=== PATIENT | female | born 1970 | race Caucasian/White ===

== ENCOUNTER 2017-03-17 04:24 | Emergency (ER) | payer OTHER ==
[2017-03-17 05:16] VITALS: TEMP 97.6; BMI 25.5
[2017-03-17] MEDS ORDERED: SODIUM CHLORIDE 1,000 ML IV STA (05:28)
[2017-03-17] MEDS ORDERED: morphine CARPU-JECT 2 MG/1 ML DISP.SYRIN IVPUSH ONE (05:28)
[2017-03-17] MEDS ORDERED: morphine CARPU-JECT 4 MG/1 ML DISP.SYRIN ONE (05:34)
[2017-03-17 05:49] LABS: BASOPHIL 0.5 % (0-2.0); EOSINOPHIL 2.9 % (0-4.5); MCH 30.8 pg (25.7-33.7); MCHC 33.5 g/dl (32.0-36.0); MEAN CELL VOLUME 91.9 fl (80-96); MEAN PLT VOLUME 9.6 fl (7.5-11.1); NEUTROPHILS 64.9 % (42.8-82.8); PLATELET COUNT 278 K/MM3 (134-434); RDW 13.8 % (11.6-15.6); WHITE BLOOD COUNT 7.9 K/mm3 (4.0-10.0)
--- NOTE | 2017-03-17 06:14 | PDOC ---
History of Present Illness - General Chief Complaint: Pain Stated Complaint: ABD PAIN Time Seen by Provider: 03/17/17 05:04 History Source: Patient Exam Limitations: No Limitations - History of Present Illness Travel History: No Initial Comments: 03/17/17 06:00 46-year-old female presents to the ED with gradually worsening right lower quadrant and right suprapubic pain that began at 10 PM last night. Patient describes it as a sharp pain without radiation, nausea, abdominal distention, diarrhea, dysuria, or fever. Patient denies history of ovarian cysts, UTIs, renal colic, gallstones or GI surgery. Patient does state history of hypertension. Timing/Duration: reports: constant, getting worse Quality: reports: moderate, sharpness Abdominal Pain Onset Location: reports: RLQ, suprapubic Activities at Onset: reports: none Aggravating Factors: improves with: None Alleviating Factors: improves with: None Past History - Past Medical History Allergies/Adverse Reactions: Allergies Allergy/AdvReac Type Severity Reaction Status Date / Time No Known Allergies Allergy Verified 02/18/16 16:13 Home Medications: Ambulatory Orders Spironolact/Hydrochlorothiazid [Spironolactone-Hctz 25-25 Tab] 1 tab PO DAILY Valsartan 320 mg PO DAILY 03/17/17 Anemia: No Asthma: Yes Cancer: No Cardiac Disorders: No CVA: No COPD: No CHF: No Dementia: No Diabetes: No GI Disorders: No Disorders: No HTN: Yes Hypercholesterolemia: No Liver Disease: No Seizures: No Thyroid Disease: No - Surgical History Abdominal Surgery: Yes (btl) Appendectomy: No Cardiac Surgery: No Cholecystectomy: No Lung Surgery: No Neurologic Surgery: No - Reproductive History LMP Normal: Yes Is Patient Now?: No - Psycho/Social/Smoking Cessation Hx Suicidal Ideation: No Smoking Status: No Smoking History: Never smoked Number of Cigarettes Smoked Daily: 0 Hx Alcohol Use: No Drug/Substance Use Hx: No Substance Use Type: None Hx Substance Use Treatment: No Patient Lives Alone: No Lives with/in: spouse/SO Review of Systems - Review of Systems Able to Perform ROS?: Yes Constitutional: No: Symptoms Reported HEENTM: No: Symptoms Reported Respiratory: No: Symptoms reported Cardiac (ROS): No: Symptoms Reported ABD/GI: Yes: Abdominal cramping. No: Nausea, Vomiting : No: Symptoms Reported Musculoskeletal: No: Symptoms Reported Integumentary: No: Symptoms Reported Neurological: No: Symptoms reported Endocrine: No: Symptoms Reported Hematologic/Lymphatic: No: Symptoms Reported *Physical Exam - Vital Signs Last Vital Signs Temp Pulse Resp BP Pulse Ox 97.6 F 65 22 113/65 99 03/17/17 04:55 03/17/17 04:55 03/17/17 04:55 03/17/17 04:55 03/17/17 04:55 - Physical Exam General Appearance: Yes: Nourished, Appropriately Dressed. No: Apparent Distress HEENT: negative: Pale Conjunctivae Respiratory/Chest: positive: Lungs Clear, Normal Breath Sounds. negative: Respiratory Distress, Accessory Muscle Use Cardiovascular: positive: Regular Rhythm, Regular Rate. negative: Murmur Female Pelvic Exam: positive: normal external exam (deferred pelvic exam (pt refused)) Gastrointestinal/Abdominal: positive: Normal Bowel Sounds, Soft, Increased Bowel Sounds, Tenderness (rlq. rt flank. + mcburneys). negative: Rebound, Mass Musculoskeletal: negative: CVA Tenderness Extremity: positive: Normal Capillary Refill. negative: Pedal Edema Integumentary: positive: Normal Color, Warm, Moist Neurologic: positive: Motor Strength 5/5 (ambulatory) ED Treatment Course - LABORATORY CBC & Chemistry Diagram: 03/17/17 05:32 03/17/17 05:32 - ADDITIONAL ORDERS Additional order review: Laboratory Results 03/17/17 05:32 Urine HCG, Qual Negative 03/17/17 05:32 RBC 4.27 MCV 91.9 MCHC 33.5 RDW 13.8 MPV 9.6 Neutrophils % 64.9 Lymphocytes % 24.9 D Monocytes % 6.8 Eosinophils % 2.9 Basophils % 0.5 - Medications Given in the ED: ED Medications Discontinued Medications Generic Name Dose Route Start Last Admin Trade Name Freq PRN Reason Stop Dose Admin Morphine Sulfate 4 mg 03/17/17 05:28 03/17/17 05:31 Morphine Injection - IVPUSH 03/17/17 05:29 4 mg ONCE ONE Administration Medical Decision Making - Medical Decision Making 03/17/17 06:00 Patient with complaints of right lower quadrant right suprapubic pain that began at 10 PM last night and gradually has worsened. Patient exam had point tenderness to the right lower quadrant and right suprapubic region. Patient concerning for appendicitis versus colitis versus ovarian cyst. Patient ordered for labs, urine analgesics and will determine imaging once labs are resulted. 03/17/17 11:50 Laboratory Tests 03/17/17 03/17/17 03/17/17 05:32 05:32 05:32 WBC 7.9 Hgb 13.1 D Hct 39.2 Neutrophils % 64.9 Sodium 140 Potassium 4.1 Chloride 98 Carbon Dioxide 29 Anion Gap 13 BUN 18 Creatinine 0.8 Random Glucose 101 Lactic Acid Calcium 9.2 Total Bilirubin 0.6 AST 17 ALT 21 Alkaline Phosphatase 78 Total Protein 7.9 Lipase Urine Ketones Negative Urine Nitrite Negative Urine HCG, Qual Negative 03/17/17 03/17/17 05:32 05:32 WBC Hgb Hct Neutrophils % Sodium Potassium Chloride Carbon Dioxide Anion Gap BUN Creatinine Random Glucose Lactic Acid 1.851 Calcium Total Bilirubin AST ALT Alkaline Phosphatase Total Protein Lipase 163 Urine Ketones Urine Nitrite Urine HCG, Qual 03/17/17 12:51 Ultrasound verbally dictated by Dr. Villafana who states patient has a right ovarian cysts were no other acute findings. Patient will be discharged home to follow-up with her PCP and told to take Motrin for discomfort. patient currently asymptomatic 03/17/17 12:52 *DC/Admit/Observation/Transfer Diagnosis at time of Disposition: Right ovarian cyst - Discharge Dispostion Disposition: HOME Condition at time of disposition: Improved - Referrals Referrals: Pretty Guzman MD [Primary Care Provider] - - Patient Instructions Printed Discharge Instructions: DI for Ovarian Cyst Additional Instructions: Please take 600 mg of Motrin every 8 hours for discomfort. May apply heating pad to the affected area. Please follow-up with your ACCESS CONTROL OFFICER and discussed today's findings. Return to ED if symptoms return or worsen
[2017-03-17 06:41] LABS: ANION GAP 13 (8-16); CALCIUM 9.2 mg/dL (8.5-10.1); CO2 29 mmol/L (21-32); CREATININE 0.8 mg/dL (0.55-1.02); GLUCOSE,RANDOM 101 mg/dL (74-106); SGOT/AST 17 U/L (15-37); SGPT/ALT 21 U/L (12-78); URINE APPEARANCE CLEAR; URINE BILIRUBIN NEGATIVE (NEGATIVE); URINE BLOOD NEGATIVE (NEGATIVE); URINE COLOR STRAW; URINE GLUCOSE (UA) NEGATIVE (NEGATIVE); URINE KETONE NEGATIVE (NEGATIVE); URINE LEUK ESTERASE NEGATIVE (NEGATIVE); URINE NITRITE NEGATIVE (NEGATIVE); URINE PROTEIN NEGATIVE (NEGATIVE); URINE UROBILINOGEN NEGATIVE E.U./dl (0.2-1.0)
[2017-03-17 06:43] LABS: ALK PHOS 78 U/L (45-117); BILIRUBIN,TOTAL 0.6 mg/dL (0.2-1.0); TOT PROT 7.9 g/dl (6.4-8.2)
[2017-03-17 13:19] VITALS: BP 110/72; PULSE 56
== END 2017-03-17 13:15 | disposition home or self-care (01) ==
LOC: JER 04:24
PROC: 3E033NZ Introduction of Analgesics, Hypnotics, Sedatives into Peripheral Vein, Percutaneous Approach (ICD-10-PCS; principal; 2017-03-17)
DX: N83.201 Unspecified ovarian cyst, right side (principal)
CPT/HCPCS: 36415; 76817-TC; 76856-TC; 80053; 81003; 83605; 83690; 84703; 85025; 96374; 99283-25

== ENCOUNTER 2017-12-27 08:15 | Emergency (ER) | payer OTHER ==
[2017-12-27 08:22] VITALS: BMI 26.3
--- NOTE | 2017-12-27 08:37 | PDOC ---
History of Present Illness - General Chief Complaint: Pain Stated Complaint: REVISIT, RT SIDE PAIN Time Seen by Provider: 12/27/17 08:34 History Source: Patient Exam Limitations: No Limitations - History of Present Illness Initial Comments: 12/27/17 09:08 Patient is a 47 her old female past medical history of hypertension, ovarian cysts, who presents emergency department today complaining of right flank pain. Patient states that she was seen on 12/25/17 for similar symptoms. She states that today her pain is worse than when she came in last. She states that the pain comes and goes and it feels like a sharp pain. She rates it as a 6/10. Denies fevers, chills nausea, vomiting, diarrhea, frequency, urgency, hematuria. Triage vital signs are WNL. Past History - Past Medical History Allergies/Adverse Reactions: Allergies Allergy/AdvReac Type Severity Reaction Status Date / Time No Known Allergies Allergy Verified 12/27/17 09:10 Home Medications: Ambulatory Orders Spironolact/Hydrochlorothiazid [Spironolactone-Hctz 25-25 Tab] 1 tab PO DAILY Valsartan 320 mg PO DAILY 03/17/17 Acetaminophen [Tylenol] 650 mg PO Q4H PRN #20 tablet 12/25/17 Famotidine [Pepcid] 20 mg PO BID PRN #14 tablet 12/25/17 Pantoprazole Sodium [Protonix] 40 mg PO DAILY #14 tablet. 12/25/17 Mag Hydrox/Al Hydrox/Simeth [Mylanta Suspension -] 30 ml PO Q6H #1 bottle Anemia: No Asthma: Yes Cancer: No Cardiac Disorders: No CVA: No COPD: No CHF: No DVT: No Dementia: No Diabetes: No GI Disorders: No Disorders: No HTN: Yes Hypercholesterolemia: No Liver Disease: No Seizures: No Thyroid Disease: No - Surgical History Abdominal Surgery: Yes (btl tubal ligation) Appendectomy: No Cardiac Surgery: No Cholecystectomy: No Lung Surgery: No Neurologic Surgery: No - Immunization History Immunization Up to Date: No - Suicide/Smoking/Psychosocial Hx Smoking Status: No Smoking History: Never smoked Have you smoked in the past 12 months: No Number of Cigarettes Smoked Daily: 0 Information on smoking cessation initiated: No Hx Alcohol Use: No Drug/Substance Use Hx: No Substance Use Type: None Hx Substance Use Treatment: No Review of Systems - Review of Systems Able to Perform ROS?: Yes Comments:: 12/27/17 08:45 CONSTITUTIONAL: Absent: fever, chills, diaphoresis, generalized weakness, malaise, loss of appetite HEENT: Absent: rhinorrhea, nasal congestion, throat pain, throat swelling, difficulty swallowing, mouth swelling, ear pain, eye pain, visual Changes CARDIOVASCULAR: Absent: chest pain, loss of consciousness, palpitations, irregular heart rate, peripheral edema RESPIRATORY: Absent: cough, shortness of breath, dyspnea with exertion, orthopnea, wheezing, stridor, hemoptysis GASTROINTESTINAL: Absent: abdominal pain, abdominal distension, nausea, vomiting, diarrhea, constipation, melena, hematochezia GENITOURINARY: Present: R flank pain Absent: dysuria, frequency, urgency, hesitancy, hematuria , genital pain MUSCULOSKELETAL: Absent: myalgia, arthralgia, joint swelling SKIN: Absent: rash, itching, pallor HEMATOLOGIC/IMMUNOLOGIC: Absent: easy bleeding, easy bruising, lymphadenopathy, frequent infections ENDOCRINE: Absent: unexplained weight gain, unexplained weight loss, heat intolerance, cold intolerance NEUROLOGIC: Absent: headache, focal weakness or paresthesias, dizziness, unsteady gait, seizure, mental status changes, bladder or bowel incontinence PSYCHIATRIC: Absent: anxiety, depression, suicidal or homicidal ideation, hallucinations. Is the patient limited Montserratian proficient: No *Physical Exam - Vital Signs Last Vital Signs Temp Pulse Resp BP Pulse Ox 98.3 F 70 18 146/87 100 12/27/17 08:18 12/27/17 08:18 12/27/17 08:18 12/27/17 08:18 12/27/17 08:18 - Physical Exam Comments: 12/27/17 08:45 GENERAL: Well developed, well nourished. Awake and alert x3. Mild distress, holding R side. HEENT: Normocephalic, atraumatic. PERRLA, EOMI. No conjunctival pallor. Sclera are non- icteric. Moist mucous membranes. Oropharynx is clear. NECK: Supple. Full ROM. No JVD. Carotid pulses 2+ and symmetric, without bruits. No thyromegaly. No lymphadenopathy. CARDIOVASCULAR: Regular rate and rhythm. No murmurs, rubs, or gallops. Distal pulses are 2+ and symmetric. PULMONARY: No evidence of respiratory distress. Lungs clear to auscultation bilaterally. No wheezing, rales or rhonchi. ABDOMINAL: Soft. Non-tender. Non-distended. No rebound or guarding. Negative rovsing, obturator, psoas signs. No organomegaly. Normoactive bowel sounds. MUSCULOSKELETAL R CVA tenderness. Normal range of motion at all joints. No bony deformities or tenderness. No CVA tenderness. EXTREMITIES: No cyanosis. No clubbing. No edema. No calf tenderness. SKIN: Warm and dry. Normal capillary refill. No rashes. No jaundice. NEUROLOGICAL: Alert, awake, appropriate. Cranial nerves 2-12 intact. No deficits to light touch and temperature in face, upper extremities and lower extremities. No motor deficits in the in face, upper extremities and lower extremities. Normoreflexic in the upper and lower extremities. Normal speech. Toes are down- going bilaterally. Gait is normal without ataxia. PSYCHIATRIC: Cooperative. Good eye contact. Appropriate mood and affect. ED Treatment Course - LABORATORY CBC & Chemistry Diagram: 12/27/17 09:00 12/27/17 09:00 Medical Decision Making - Medical Decision Making 12/27/17 09:09 Patient is a 47-year-old female past medical history of ovarian cysts, hypertension, presenting emergency department today with 3 days of right-sided flank/abdominal pain. Exam with CVA tenderness; however no abdominal pain no focal findings. Vital signs stable patient is afebrile. On her visit on 12/25/17, patient had a renal scan as well as a right upper quadrant ultrasound. There is no acute pathology found on either test at that time. Patient was diagnosed with gastritis and sent home. Patient states that she does not have any stomach pain has not been taking any medication for her current pain. We will do basic labs, urine, bladder/pelvic ultrasound and compared to last visit. Toradol for pain. Differential diagnosis includes musculoskeletal pain, UTI, ovarian cyst. Less likely kidney stone appendicitis at this time CT revealed no evidence last time. Reevaluate. 12/27/17 12:11 Spoke with [employer]. There was gas obstructing the *DC/Admit/Observation/Transfer Diagnosis at time of Disposition: Abdominal pain Qualifiers: Abdominal location: right lower quadrant Qualified Code(s): R10.31 - Right lower quadrant pain - Discharge Dispostion Disposition: HOME Condition at time of disposition: Stable Admit: No - Prescriptions Prescriptions: Mag Hydrox/Al Hydrox/Simeth [Mylanta Suspension -] 30 ml PO Q6H #1 bottle - Referrals Referrals: Greg Hagen MD [Staff Physician] - Renetta Gan MD [Staff Physician] - - Patient Instructions Printed Discharge Instructions: How to Avoid Gas Additional Instructions: Your ultrasound today showed a lot of gas. This could be causing your pain. Please drink plenty of water. Take the Maalox as prescribed. You may use heating packs to the area. Walking may help her symptoms as well. Please follow- up with your primary care doctor and marketing planner within the next week. Return to the emergency department if you have worsening pain, fevers, chills, vomiting, diarrhea, constipation or any changes in your symptoms. Mcginnis ultrasonido hoy mostr mucho gas. Dunean podra estar causando tu dolor. Por favor, beber karen agua. Sheldahl el Maalox segn lo prescrito. Puede usar paquetes de calefaccin en el boni. Caminar tambin puede ayudar a kelley sntomas. Por favor valerie un seguimiento con mcginnis mdico de atencin primaria y mcginnis gineclogo dentro de la prxima semana. Regrese al servicio de urgencias si tiene un empeoramiento del dolor, fiebre, escalofros, vmitos, diarrea, estreimiento o cualquier cambio en kelley sntomas. Print Language: ALBANIAN - Post Discharge Activity
[2017-12-27] MEDS ORDERED: SODIUM CHLORIDE 1,000 ML IV STA (08:50)
[2017-12-27] MEDS ORDERED: KETOROLAC TROMETHAMINE 30 MG/1 ML VIAL IVPUSH ONE (08:51)
--- NOTE | 2017-12-27 09:04 | PDOC ---
*Physical Exam - Vital Signs Last Vital Signs Temp Pulse Resp BP Pulse Ox 98.3 F 70 18 146/87 100 12/27/17 08:18 12/27/17 08:18 12/27/17 08:18 12/27/17 08:18 12/27/17 08:18
[2017-12-27] MEDS ORDERED: KETOROLAC TROMETHAMINE 30 MG/1 ML VIAL ONE (09:06)
[2017-12-27 09:08] LABS: BASO % 0.7 % (0-2.0); EOS % 0.5 % (0-4.5); HEMATOCRIT 37.9 % (32.4-45.2); HEMOGLOBIN 12.9 GM/dL (10.7-15.3); LYMPH % 15.2 % (8-40); MCH 31.4 pg (25.7-33.7); MEAN CELL VOLUME 92.2 fl (80-96); MEAN PLT VOLUME 9.7 fl (7.5-11.1); MONO % 5.5 % (3.8-10.2); NEUT % 78.1 % (42.8-82.8); PLATELET COUNT 279 K/MM3 (134-434); RBC 4.11 M/mm3 (3.60-5.2); RDW 13.6 % (11.6-15.6); WHITE BLOOD COUNT 9.1 K/mm3 (4.0-10.0)
[2017-12-27 09:11] LABS: URINE APPEARANCE SLCLOUDY; URINE BILIRUBIN NEGATIVE (NEGATIVE); URINE BLOOD NEGATIVE (NEGATIVE); URINE COLOR LTYELLOW; URINE GLUCOSE (UA) NEGATIVE (NEGATIVE); URINE KETONE NEGATIVE (NEGATIVE); URINE LEUK ESTERASE NEGATIVE (NEGATIVE); URINE NITRITE NEGATIVE (NEGATIVE); URINE PROTEIN NEGATIVE (NEGATIVE); URINE UROBILINOGEN NEGATIVE mg/dL (0.2-1.0)
[2017-12-27 09:19] LABS: INR 1.04 (0.82-1.09); PROTHROMBIN TIME (PATIENT) 11.8 SEC (9.98-11.88)
[2017-12-27 09:34] LABS: ALK PHOS 67 U/L (45-117); ANION GAP 12 (8-16); BILIRUBIN,TOTAL 0.8 mg/dL (0.2-1.0); BLOOD UREA NITROGEN 23 mg/dL (7-18); CALCIUM 8.9 mg/dL (8.5-10.1); CHLORIDE 100 mmol/L (98-107); CO2 27 mmol/L (21-32); CREATININE 0.8 mg/dL (0.55-1.02); GLUCOSE,RANDOM 114 mg/dL (74-106); POTASSIUM 3.6 mmol/L (3.5-5.1); SGOT/AST 16 U/L (15-37); SGPT/ALT 21 U/L (12-78); SODIUM 139 mmol/L (136-145); TOT PROT 8.4 g/dl (6.4-8.2)
[2017-12-27] MEDS ORDERED: morphine CARPU-JECT 2 MG/1 ML DISP.SYRIN IVPUSH ONE (09:58)
[2017-12-27] MEDS ORDERED: SIMETHICONE 80 MG TAB.CHEW (FP) PO ONE (11:21)
[2017-12-27] MEDS ORDERED: MAG HYDROX/AL HYDROX/SIMETH 30 ML UNIT-DOSE CUP PO ONE (11:37)
[2017-12-27] MEDS ORDERED: MAG HYDROX/AL HYDROX/SIMETH 30 ML UNIT-DOSE CUP ONE (12:16)
[2017-12-27 12:23] VITALS: BP 122/70; PULSE 78; TEMP 98.6
== END 2017-12-27 12:21 | disposition home or self-care (01) ==
LOC: JER 08:15
PROC: 3E0333Z Introduction of Anti-inflammatory into Peripheral Vein, Percutaneous Approach (ICD-10-PCS; principal; 2017-12-27)
PROC: 3E033NZ Introduction of Analgesics, Hypnotics, Sedatives into Peripheral Vein, Percutaneous Approach (ICD-10-PCS; 2017-12-27)
PROC: 3E0337Z Introduction of Electrolytic and Water Balance Substance into Peripheral Vein, Percutaneous Approach (ICD-10-PCS; 2017-12-27)
DX: R10.31 Right lower quadrant pain (principal); I10 Essential (primary) hypertension; N83.209 Unspecified ovarian cyst, unspecified side; J45.909 Unspecified asthma, uncomplicated
CPT/HCPCS: 36415; 76856-TC; 80053; 81003; 83690; 84703; 85025; 85610; 87086; 96361; 96374; 96375; 99285-25

== ENCOUNTER 2020-04-27 17:06 | Emergency (ER) | payer OTHER ==
--- NOTE | 2020-04-27 17:34 | PDOC ---
Rapid Medical Evaluation Chief Complaint: Pain Time Seen by Provider: 04/27/20 17:31 Medical Evaluation: Allergies Allergy/AdvReac Type Severity Reaction Status Date / Time No Known Allergies Allergy Verified 12/27/17 09:10 04/27/20 17:32 I performed a brief in-person evaluation of this patient. 50 y/o female with LUQ abdominal pain x 5 days. No n/v/d/c. No fevers or chills. Pt has h/o HTN and asthma. Does not worsen with deep breath. Pertinent physical exam findings: LUQ tender to palpation, nontoxic I have ordered the following: labs, ekg Patient to proceed to ED for further evaluation. Discharge Disposition - Diagnosis LUQ abdominal pain - Referrals - Patient Instructions - Post Discharge Activity
[2020-04-27 17:35] VITALS: BMI 26.3
[2020-04-27] MEDS ORDERED: FAMOTIDINE 20 MG TABLET PO ONE (18:10)
[2020-04-27] MEDS ORDERED: MAG HYDROX/AL HYDROX/SIMETH -MYLANTA- ORAL SUSPENSION PO ONE (18:10)
--- NOTE | 2020-04-27 18:11 | PDOC ---
History of Present Illness - General Chief Complaint: Pain Stated Complaint: ABDOMINAL PAIN Time Seen by Provider: 04/27/20 17:31 History Source: Patient Exam Limitations: No Limitations - History of Present Illness Travel History: No Initial Comments: 04/27/20 18:12 HISTORY OF PRESENT ILLNESS: 50-year-old female denies medical history presents emergency department for evaluation of left upper quadrant pain worsening over the past 5 days. Patient is unable to describe the quality of the pain other than "it is very strong." Patient reports she has had similar symptoms in the past but never at this intensity. Patient is unable to identify any aggravating or alleviating factors. Patient is eating and drinking approximately once a day and feels that if she is "not digesting food." Patient reports having normal bowel movements until this morning when she had 2 loose yellow stools without bleeding. No recent travel or sick contacts. PAST MEDICAL HISTORY: Denies past medical history SURGICAL HISTORY: Denies ALLERGIES: No known drug allergies REVIEW OF SYSTEMS General/Constitutional: Denies fever or chills. Denies weakness, weight change. HEENT: Denies change in vision. Denies ear pain or discharge. Denies sore throat. Cardiovascular: Denies chest pain or shortness of breath. Respiratory: Denies cough, wheezing, or hemoptysis. Gastrointestinal: See HPI Genitourinary: Denies dysuria, frequency, or change in urination. Musculoskeletal: Denies joint or muscle swelling or pain. Denies neck or back pain. Skin and breasts: Denies rash or easy bruising. Neurologic: Denies headache, vertigo, loss of consciousness, or loss of sensation. Psychiatric: Denies depression or anxiety. Endocrine: Denies increased thirst. Denies abnormal weight change. Hematologic/Lymphatic: Denies anemia, easy bleeding, or history of blood clots. Allergic/Immunologic: Denies hives or skin allergy. Denies latex allergy. PHYSICAL EXAM General Appearance: Well-appearing, appropriately dressed. No apparent distress, no intoxication. Respiratory/Chest: Lungs CTAB. No shortness of breath, chest tenderness, respiratory distress, accessory muscle use. No crackles, rales, rhonchi, stridor, wheezing, dullness Cardiovascular: RRR. S1, S2. No JVD, murmur, bradycardia, tachycardia. Gastrointestinal/Abdominal: Normal bowel sounds. Abdomen soft, non-distended. No tenderness or rebound tenderness. No organomegaly, pulsatile mass, guarding, hernia, hepatomegaly, splenomegaly. Past History - Medical History Allergies/Adverse Reactions: Allergies Allergy/AdvReac Type Severity Reaction Status Date / Time No Known Allergies Allergy Verified 12/27/17 09:10 Home Medications: Ambulatory Orders Spironolact/Hydrochlorothiazid [Spironolactone-Hctz 25-25 Tab] 1 tab PO DAILY 03/17/17 Valsartan 320 mg PO DAILY 03/17/17 Acetaminophen [Tylenol] 650 mg PO Q4H PRN #20 tablet 12/25/17 Famotidine [Pepcid] 20 mg PO BID PRN #14 tablet 12/25/17 Pantoprazole Sodium [Protonix] 40 mg PO DAILY #14 tablet. 12/25/17 Mag Hydrox/Al Hydrox/Simeth [Mylanta Suspension -] 30 ml PO Q6H #1 bottle 12/27/17 Anemia: No Asthma: Yes Cancer: No Cardiac Disorders: No CVA: No COPD: No CHF: No DVT: No Dementia: No Diabetes: No GI Disorders: No Disorders: No HTN: Yes Hypercholesterolemia: No Liver Disease: No Seizures: No Thyroid Disease: No - Surgical History Abdominal Surgery: Yes (btl tubal ligation) Appendectomy: No Cardiac Surgery: No Cholecystectomy: No Lung Surgery: No Neurologic Surgery: No - Immunization History Immunization Up to Date: No - Psycho-Social/Smoking History Smoking Status: No Smoking History: Never smoked Have you smoked in the past 12 months: No Number of Cigarettes Smoked Daily: 0 - Substance Abuse Hx (Audit-C & DAST Scrn) In the last yr the pt used illegal drug/Rx for NonMed reason: No Score: Yes response is considered Positive: 0 Screen Result (Positive result requires Nsg. DAST-10): Negative *Physical Exam - Vital Signs Last Vital Signs Temp Pulse Resp BP Pulse Ox 98.9 F 99 H 16 128/54 L 100 04/27/20 17:33 04/27/20 17:33 04/27/20 17:33 04/27/20 17:33 04/27/20 17:33 ED Treatment Course - LABORATORY CBC & Chemistry Diagram: 04/27/20 18:10 04/27/20 18:10 Medical Decision Making - Medical Decision Making 04/27/20 18:13 A/P: 50-year-old woman with 5 days of left upper quadrant pain. Physical exam is unremarkable Labs per RME Urinalysis, urine , urine culture Pepcid 20 mg orally now Maalox 30 cc orally now Reassess-low threshold for imaging for abnormal laboratory testing 04/27/20 19:24 Laboratory Tests 04/27/20 04/27/20 04/27/20 18:10 18:10 18:30 WBC 8.8 RBC 3.80 Hgb 11.9 Hct 35.1 MCV 92.3 MCH 31.3 MCHC 33.9 RDW 13.9 Plt Count 308 MPV 9.8 Absolute Neuts (auto) 6.6 Neutrophils % 74.4 Lymphocytes % 16.6 Monocytes % 6.6 Eosinophils % 1.6 D Basophils % 0.8 Nucleated RBC % 0 Sodium 138 Potassium 3.6 Chloride 101 Carbon Dioxide 26 Anion Gap 11 BUN 13.4 Creatinine 0.8 Est GFR (CKD-EPI)AfAm 100.33 Est GFR (CKD-EPI)NonAf 86.57 Random Glucose 116 H Calcium 8.9 Total Bilirubin 0.8 AST 23 ALT 18 Alkaline Phosphatase 70 Total Protein 7.6 Albumin 3.9 Lipase 118 Urine Color Yellow Urine Appearance Cloudy Urine pH 8.0 D Ur Specific Barry 1.012 Urine Protein Negative Urine Glucose (UA) Negative Urine Ketones Negative Urine Blood Negative Urine Nitrite Negative Urine Bilirubin Negative Urine Urobilinogen 0.2 Ur Leukocyte Esterase Negative EKG sinus rhythm with rate of 69. Normal intervals present. Normal axis. No ST elevations or ST depressions present. Given unremarkable laboratory testing as well as benign exam I feel it is safe to discharge home to follow-up with primary doctor. I will give her referral for GI for continued evaluation of symptoms do not improve. I discussed the physical exam findings, ancillary test results and final diagnoses with the patient. I answered all of the patient's questions. The patient was satisfied with the care received and felt comfortable with the discharge plan and treatment plan. The patient will call their primary care physician within 24 hours to arrange follow-up and will return to the Emergency Department with any new, persistent or worsening symptoms. Portions of this note have been documented using voice recognition software. As a result, errors may occur in the motor express clerk process. Effort has been made to correct all grammatical and motor express clerk error, but some may have been missed which may produce sporadic inaccurate motor express clerk or nonsensical phrases. Discharge - Discharge Information Problems reviewed: Yes Clinical Impression/Diagnosis: LUQ abdominal pain Condition: Fair Disposition: HOME - Admission No - Follow up/Referral Referrals: Christal Maddox DO [Staff Physician] - - Patient Discharge Instructions Additional Instructions: Rest, drink lots of fluids: Teas, water, soups Becky kimberly, carbonated beverages for the bubbles May try peppermint teas Avoid heavy , spicy or fatty foods until symptoms have resolved Avoid contact with others until fevers and symptoms resolved Lots of handwashing and good hygiene Continue [id number] medications for symptomatic relief-Maalox, Mylanta or Pepto-Bismol. Tylenol or Motrin for fever and pain Followup with private physician in one to 2 days as needed Return to emergency department for worsened symptoms, fevers, dehydration - Post Discharge Activity
[2020-04-27 18:19] LABS: BASO % 0.8 % (0-2.0); EOS % 1.6 % (0-4.5); HEMATOCRIT 35.1 % (32.4-45.2); HEMOGLOBIN 11.9 GM/dL (10.7-15.3); LYMPH % 16.6 % (8-40); MCH 31.3 pg (25.7-33.7); MCHC 33.9 g/dl (32.0-36.0); MEAN CELL VOLUME 92.3 fl (80-96); MEAN PLT VOLUME 9.8 fl (7.5-11.1); MONO % 6.6 % (3.8-10.2); NEUT % 74.4 % (42.8-82.8); PLATELET COUNT 308 K/MM3 (134-434); RDW 13.9 % (11.6-15.6); WHITE BLOOD COUNT 8.8 K/mm3 (4.0-10.0)
[2020-04-27] MEDS ORDERED: FAMOTIDINE 20 MG TABLET ONE (18:19)
[2020-04-27] MEDS ORDERED: MAG HYDROX/AL HYDROX/SIMETH 30 ML UNIT-DOSE CUP ONE (18:19)
[2020-04-27 18:38] LABS: URINE APPEARANCE CLOUDY; URINE BILIRUBIN NEGATIVE (NEGATIVE); URINE COLOR YELLOW; URINE GLUCOSE (UA) NEGATIVE (NEGATIVE); URINE KETONE NEGATIVE (NEGATIVE); URINE LEUK ESTERASE NEGATIVE (NEGATIVE); URINE NITRITE NEGATIVE (NEGATIVE); URINE PROTEIN NEGATIVE (NEGATIVE); URINE UROBILINOGEN 0.2 mg/dL (0.2-1.0)
[2020-04-27 19:13] LABS: ALBUMIN 3.9 g/dl (3.4-5.0); BILIRUBIN,TOTAL 0.8 mg/dL (0.2-1); BLOOD UREA NITROGEN 13.4 mg/dL (7-18); CALCIUM 8.9 mg/dL (8.5-10.1); CREATININE 0.8 mg/dL (0.55-1.3); POTASSIUM 3.6 mmol/L (3.5-5.1); TOT PROT 7.6 g/dl (6.4-8.2)
[2020-04-27 19:43] VITALS: BP 124/66; PULSE 78; TEMP 98.5
--- NOTE | 2020-04-29 14:13 | EKG ---
Test Reason : Blood Pressure : / mmHG Vent. Rate : 069 BPM Atrial Rate : 069 BPM P-R Int : 204 ms QRS Dur : 080 ms QT Int : 408 ms P-R-T Axes : 068 011 030 degrees QTc Int : 437 ms NORMAL SINUS RHYTHM NORMAL ECG WHEN COMPARED WITH ECG OF 14-DEC-2012 08:22, NO SIGNIFICANT CHANGE WAS FOUND Confirmed by RUDY GALLEGOS MD ([id number]) on 04/29/2020 2:12:24 PM Referred By: Confirmed By:RUDY GALLEGOS MD
== END 2020-04-27 19:44 | disposition home or self-care (01) ==
LOC: JER 17:06
DX: R10.12 Left upper quadrant pain (principal)
CPT/HCPCS: 36415; 80053; 81003; 83690; 85025; 87077; 87086; 93005; 93010; 99284-25

== ENCOUNTER 2022-02-06 10:08 | Emergency (ER) | payer OTHER ==
[2022-02-06 10:15] VITALS: BP 132/78; PULSE 77; TEMP 98; BMI 27.3
[2022-02-06 11:47] LABS: URINE APPEARANCE CLOUDY; URINE BILIRUBIN NEGATIVE (NEGATIVE); URINE COLOR YELLOW; URINE GLUCOSE (UA) NEGATIVE (NEGATIVE); URINE KETONE TRACE (NEGATIVE); URINE LEUK ESTERASE NEGATIVE (NEGATIVE); URINE NITRITE NEGATIVE (NEGATIVE); URINE PROTEIN NEGATIVE (NEGATIVE); URINE UROBILINOGEN 0.2 mg/dL (0.2-1.0)
[2022-02-06] MEDS ORDERED: KETOROLAC TROMETHAMINE 15 MG/ML VIAL IM ONE (11:57)
[2022-02-06] MEDS ORDERED: KETOROLAC TROMETHAMINE 15 MG/ML VIAL ONE (11:59)
== END 2022-02-06 12:37 | disposition home or self-care (01) ==
LOC: JERFT 10:08
PROC: 3E0233Z Introduction of Anti-inflammatory into Muscle, Percutaneous Approach (ICD-10-PCS; principal; 2022-02-06)
DX: M54.6 Pain in thoracic spine (principal)
CPT/HCPCS: 71046-TC-FY; 81003; 87086; 99284-25

== ENCOUNTER 2022-05-17 20:29 | Emergency (ER) | payer OTHER ==
[2022-05-17 21:07] VITALS: BP 130/77; PULSE 71; RESP 18; TEMP 97.6; BMI 28.1
[2022-05-17] MEDS ORDERED: SODIUM CHLORIDE 1,000 ML IV ONE (21:48)
[2022-05-17] MEDS ORDERED: METOCLOPRAMIDE HCL INJECTION 10 MG/2 ML VIAL IVPUSH STA (21:48)
[2022-05-17] MEDS ORDERED: METOCLOPRAMIDE HCL INJECTION 10 MG/2 ML VIAL ONE (21:57)
[2022-05-17 22:38] LABS: EOS % 3.7 % (0-4.5); HEMATOCRIT 35.4 % (32.4-45.2); HEMOGLOBIN 11.9 GM/dL (10.7-15.3); LYMPH % 29.6 % (8-40); MCH 30.9 pg (25.7-33.7); MCHC 33.6 g/dl (32.0-36.0); MEAN CELL VOLUME 91.7 fl (80-96); MEAN PLT VOLUME 9.9 fl (7.5-11.1); MONO % 9.5 % (3.8-10.2); NEUT % 56.2 % (42.8-82.8); PLATELET COUNT 292 10^3/uL (134-434); RBC 3.86 M/mm3 (3.60-5.2); RDW 13.4 % (11.6-15.6); WHITE BLOOD COUNT 8.4 K/mm3 (4.0-10.0)
[2022-05-17 22:58] LABS: CALCIUM 8.3 mg/dL (8.5-10.1)
[2022-05-17 22:59] LABS: ALBUMIN 3.9 g/dl (3.4-5.0); BLOOD UREA NITROGEN 15.6 mg/dL (7-18)
[2022-05-17 23:02] LABS: CREATININE 0.7 mg/dL (0.55-1.3)
[2022-05-17 23:03] LABS: BILIRUBIN,TOTAL 0.4 mg/dL (0.2-1)
[2022-05-17 23:04] LABS: TOT PROT 7.6 g/dl (6.4-8.2)
[2022-05-17 23:08] LABS: PH,URINE 7.5 (5.0-8.0); URINE APPEARANCE TURBID; URINE BILIRUBIN NEGATIVE (NEGATIVE); URINE COLOR YELLOW; URINE GLUCOSE (UA) NEGATIVE (NEGATIVE); URINE KETONE NEGATIVE (NEGATIVE); URINE LEUK ESTERASE NEGATIVE (NEGATIVE); URINE NITRITE NEGATIVE (NEGATIVE); URINE PROTEIN NEGATIVE (NEGATIVE); URINE UROBILINOGEN 0.2 mg/dL (0.2-1.0)
[2022-05-17 23:11] LABS: HCG,QUALITATIVE URINE Negative
== END 2022-05-18 01:20 | disposition left against medical advice (07) ==
LOC: JER 20:29
PROC: 3E033NZ Introduction of Analgesics, Hypnotics, Sedatives into Peripheral Vein, Percutaneous Approach (ICD-10-PCS; principal; 2022-05-17)
PROC: 3E033GC Introduction of Other Therapeutic Substance into Peripheral Vein, Percutaneous Approach (ICD-10-PCS; 2022-05-17)
PROC: 3E0337Z Introduction of Electrolytic and Water Balance Substance into Peripheral Vein, Percutaneous Approach (ICD-10-PCS; 2022-05-17)
DX: R42 Dizziness and giddiness (principal)
CPT/HCPCS: 36415; 71045-TC-FY; 80053; 81003; 84484; 84703; 85025; 87086; 99285-25

== ENCOUNTER 2022-08-11 08:58 | Emergency (ER) | payer OTHER ==
[2022-08-11 09:38] VITALS: BP 94/61; PULSE 70; RESP 16; TEMP 98; BMI 27.3
[2022-08-11] MEDS ORDERED: ACETAMINOPHEN 500 MG TABLET (FP) PO ONE (10:09)
[2022-08-11] MEDS ORDERED: ACETAMINOPHEN 325 MG TABLET (FP) ONE (10:54)
[2022-08-11 11:54] LABS: URINE APPEARANCE CLEAR; URINE BILIRUBIN NEGATIVE (NEGATIVE); URINE COLOR YELLOW; URINE GLUCOSE (UA) NEGATIVE (NEGATIVE); URINE KETONE NEGATIVE (NEGATIVE); URINE LEUK ESTERASE NEGATIVE (NEGATIVE); URINE NITRITE NEGATIVE (NEGATIVE); URINE PROTEIN NEGATIVE (NEGATIVE); URINE UROBILINOGEN 0.2 mg/dL (0.2-1.0)
[2022-08-11 12:19] LABS: CALCIUM 9.6 mg/dL (8.5-10.1)
[2022-08-11 12:20] LABS: ALBUMIN 4.1 g/dl (3.4-5.0); BLOOD UREA NITROGEN 14.1 mg/dL (7-18)
[2022-08-11 12:23] LABS: CREATININE 0.8 mg/dL (0.55-1.3)
[2022-08-11 12:24] LABS: BILIRUBIN,TOTAL 0.6 mg/dL (0.2-1); TOT PROT 8.4 g/dl (6.4-8.2)
[2022-08-11] MEDS ORDERED: KETOROLAC TROMETHAMINE 15 MG/ML VIAL IVPUSH ONE (12:40)
[2022-08-11 12:43] LABS: BASO % 0.5 % (0-2.0); EOS % 3.8 % (0-4.5); HEMATOCRIT 36.9 % (32.4-45.2); HEMOGLOBIN 12.8 GM/dL (10.7-15.3); LYMPH % 28.7 % (8-40); MCH 31.5 pg (25.7-33.7); MCHC 34.8 g/dl (32.0-36.0); MEAN CELL VOLUME 90.5 fl (80-96); MEAN PLT VOLUME 9.3 fl (7.5-11.1); MONO % 5.8 % (3.8-10.2); NEUT % 61.2 % (42.8-82.8); PLATELET COUNT 334 10^3/uL (134-434); RBC 4.08 M/mm3 (3.60-5.2); RDW 13.4 % (11.6-15.6); WHITE BLOOD COUNT 6.3 K/mm3 (4.0-10.0)
[2022-08-11] MEDS ORDERED: KETOROLAC TROMETHAMINE 15 MG/ML VIAL ONE (12:51)
== END 2022-08-11 13:52 | disposition home or self-care (01) ==
LOC: JER 08:58
PROC: 3E0333Z Introduction of Anti-inflammatory into Peripheral Vein, Percutaneous Approach (ICD-10-PCS; principal; 2022-08-11)
DX: R10.31 Right lower quadrant pain (principal)
CPT/HCPCS: 36415; 80053; 81003; 85025; 87086; 99284-25

== ENCOUNTER 2023-06-02 02:51 | Day surgery (SDC) | payer OTHER ==
[2023-06-02] MEDS ORDERED: ONDANSETRON 4 MG/2 ML VIAL IVPUSH ONE (03:34)
[2023-06-02] MEDS ORDERED: FAMOTIDINE 20 MG/50 ML IVPB 20 MG/50 ML MG IVPB ONE ×2 (03:34→03:37)
[2023-06-02] MEDS ORDERED: MAG HYDROX/AL HYDROX/SIMETH -MYLANTA- ORAL SUSPENSION PO ONE (03:34)
[2023-06-02] MEDS ORDERED: LACTATED RINGERS SOLUTION 1000 ML INFUS.BAG IV ONE (03:34)
[2023-06-02] MEDS ORDERED: ACETAMINOPHEN 1000 MG/100 ML BAG IVPB ONE ×2 (03:34→19:30)
[2023-06-02] MEDS ORDERED: ONDANSETRON 4 MG/2 ML VIAL ONE (03:36)
[2023-06-02] MEDS ORDERED: ACETAMINOPHEN INJECTION 100 ML IVPB ONE ×2 (03:36→19:28)
[2023-06-02] MEDS ORDERED: MAG HYDROX/AL HYDROX/SIMETH 30 ML UNIT-DOSE CUP ONE (03:36)
[2023-06-02 04:16] LABS: INR 1.04 (0.83-1.09); PROTHROMBIN TIME (PATIENT) 12.1 SEC (9.7-13.0)
[2023-06-02 04:18] LABS: ACTIVATED PTT 34.2 SECONDS (25.2-36.5)
[2023-06-02 04:30] LABS: POTASSIUM 3.6 mmol/L (3.5-5.1)
[2023-06-02 04:33] LABS: BLOOD UREA NITROGEN 20.8 mg/dL (7-18); MAGNESIUM 2.6 mg/dL (1.8-2.4)
[2023-06-02 04:36] LABS: CREATININE 0.9 mg/dL (0.55-1.3)
[2023-06-02 04:38] LABS: BILIRUBIN,TOTAL 0.5 mg/dL (0.2-1)
[2023-06-02 04:48] LABS: BASO % 0.4 % (0-2.0); EOS % 4.5 % (0-4.5); HEMATOCRIT 36.9 % (32.4-45.2); HEMOGLOBIN 12.6 GM/dL (10.7-15.3); LYMPH % 28.1 % (8-40); MCH 30.5 pg (25.7-33.7); MCHC 34.2 g/dl (32.0-36.0); MEAN CELL VOLUME 89.4 fl (80-96); MEAN PLT VOLUME 9.3 fl (7.5-11.1); MONO % 6.4 % (3.8-10.2); NEUT % 60.6 % (42.8-82.8); PLATELET COUNT 318 10^3/uL (134-434); RBC 4.13 M/mm3 (3.60-5.2); RDW 13.5 % (11.6-15.6); WHITE BLOOD COUNT 8.2 K/mm3 (4.0-10.0)
[2023-06-02] MEDS ORDERED: morphine CARPU-JECT 2 MG/1 ML DISP.SYRIN IVPUSH ONE (09:25)
[2023-06-02] MEDS ORDERED: AMPICILLIN NA/SULBACTAM NA 1.5 GM in SODIUM CHLORIDE 100 ML IVPB ONE (11:14)
[2023-06-02] MEDS ORDERED: LACTATED RINGERS SOLUTION 1,000 ML/1,000 ML INFUS.BAG IV SCH ×2 (12:00→19:22)
[2023-06-02] MEDS ORDERED: LOSARTAN POTASSIUM 50 MG TABLET PO SCH (13:00)
[2023-06-02] MEDS ORDERED: LOSARTAN POTASSIUM 50 MG TABLET ONE (13:31)
[2023-06-02] MEDS ORDERED: BUPIVACAINE HCL/PF 0.5% (5MG/ML) 10 ML VIAL ONE ×2 (15:46→17:45)
[2023-06-02] MEDS ORDERED: PROPOFOL 20 ML ONE ×2 (17:23→18:00)
[2023-06-02] MEDS ORDERED: ROCURONIUM BROMIDE 50 MG/5 ML SYRINGE ONE (17:23)
[2023-06-02] MEDS ORDERED: MIDAZOLAM HCL 2 MG/2 ML SINGLE DOSE VIAL ONE (17:24)
[2023-06-02] MEDS ORDERED: BUPIVACAINE HCL/PF 0.5% (5 MG/ML) 30 ML VIAL IJ ONE (17:55)
[2023-06-02] MEDS ORDERED: LIDOCAINE HCL 1%, 10 MG/ML (20ML VIAL) INF ONE (17:55)
[2023-06-02] MEDS ORDERED: HYDROmorphone HCl 2 MG/ML VIAL ONE (18:49)
[2023-06-02] MEDS ORDERED: ONDANSETRON 4 MG/2 ML VIAL IVPUSH PRN (19:20)
[2023-06-02] MEDS ORDERED: oxyCODONE HCL 5 MG TABLET PO PRN (19:23)
[2023-06-02] MEDS ORDERED: KETOROLAC TROMETHAMINE 30 MG/1 ML VIAL IM PRN (19:27)
[2023-06-02] MEDS: ACETAMINOPHEN 1000 MG/100 ML BAG IVPB SCH (19:47)
[2023-06-03] MEDS: ACETAMINOPHEN 1000 MG/100 ML BAG IVPB SCH ×3 (01:24→14:43)
[2023-06-03 02:24] VITALS: BMI 26.7
[2023-06-03 07:48] LABS: BASO % 0.1 % (0-2.0); HEMATOCRIT 33.4 % (32.4-45.2); HEMOGLOBIN 11.3 GM/dL (10.7-15.3); MCH 30.8 pg (25.7-33.7); MCHC 33.8 g/dl (32.0-36.0); MEAN CELL VOLUME 91.1 fl (80-96); MEAN PLT VOLUME 9.9 fl (7.5-11.1); MONO % 2.7 % (3.8-10.2); NEUT % 85.2 % (42.8-82.8); PLATELET COUNT 307 10^3/uL (134-434); RBC 3.67 M/mm3 (3.60-5.2); RDW 13.2 % (11.6-15.6)
[2023-06-03 08:06] LABS: POTASSIUM 4.4 mmol/L (3.5-5.1)
[2023-06-03 08:08] LABS: CALCIUM 8.4 mg/dL (8.5-10.1)
[2023-06-03 08:10] LABS: BLOOD UREA NITROGEN 13.6 mg/dL (7-18)
[2023-06-03 08:12] LABS: CREATININE 0.8 mg/dL (0.55-1.3)
[2023-06-03] MEDS: DOCUSATE SODIUM 100 MG CAPSULE (FP) PO SCH ×2 (09:17→14:43)
[2023-06-03] MEDS ORDERED: LOSARTAN POTASSIUM 50 MG TABLET PO SCH (10:00)
[2023-06-03 10:23] VITALS: RESP 18
[2023-06-03 13:18] LABS: ALBUMIN 3.3 g/dl (3.4-5.0)
[2023-06-03 13:20] LABS: BILIRUBIN,DIRECT 0.2 mg/dL (0.0-0.2)
[2023-06-03 13:23] LABS: BILIRUBIN,TOTAL 0.6 mg/dL (0.2-1); TOT PROT 6.8 g/dl (6.4-8.2)
[2023-06-03 14:19] VITALS: BP 140/93; PULSE 67; TEMP 97.8
[2023-06-03] MEDS ORDERED: POLYETHYLENE GLYCOL (HEALTHYLAX) 3350 17 GM PACKET PO SCH (17:15)
== END 2023-06-03 18:58 | disposition home or self-care (01) ==
LOC: JER 02:51 → JERBED 11:10 → UNDOADMOB 11:10 → INTOOBSV 11:10 → JERBED 11:49 → UNDOADMOB 11:49 → JASUSAT 14:34 → SUATTDRO 14:34 → J8W 21:00 → JASUSAT 06-03 18:58
PROVIDERS: ATTEND Nurse Practitioner Acute Care
PROC: 0FT44ZZ Resection of Gallbladder, Percutaneous Endoscopic Approach (ICD-10-PCS; principal; 2023-06-02 16:00)
DX: K80.00 Calculus of gallbladder with acute cholecystitis without obstruction (principal)
CPT/HCPCS: 36415; 74177-TC; 76705-TC; 80048; 80053; 80076; 83690; 83735; 84484; 84703; 85025; 85610; 85730; 86850; 86900; 86901; 93005; 93010; 94760; 99285-25

== ENCOUNTER 2023-06-11 11:02 | Emergency (ER) | payer OTHER ==
[2023-06-11 11:23] VITALS: BP 145/91; PULSE 74; RESP 20; TEMP 98.1; BMI 26.6
[2023-06-11] MEDS ORDERED: ACETAMINOPHEN 1000 MG/100 ML BAG IVPB ONE (12:00)
[2023-06-11] MEDS ORDERED: SODIUM CHLORIDE 0.9% 500 ML INFUS.BAG IV ONE (12:00)
[2023-06-11] MEDS ORDERED: ACETAMINOPHEN INJECTION 100 ML IVPB ONE (12:12)
[2023-06-11 13:22] LABS: EOS % 11.1 % (0-4.5); HEMATOCRIT 37.5 % (32.4-45.2); HEMOGLOBIN 12.3 GM/dL (10.7-15.3); LYMPH % 24.5 % (8-40); MCHC 32.8 g/dl (32.0-36.0); MEAN CELL VOLUME 91.2 fl (80-96); MEAN PLT VOLUME 10.3 fl (7.5-11.1); MONO % 7.8 % (3.8-10.2); NEUT % 55.6 % (42.8-82.8); PLATELET COUNT 353 10^3/uL (134-434); RBC 4.11 M/mm3 (3.60-5.2)
[2023-06-11 13:46] LABS: POTASSIUM 5.3 mmol/L (3.5-5.1)
[2023-06-11 13:49] LABS: ALBUMIN 3.9 g/dl (3.4-5.0); BLOOD UREA NITROGEN 18.3 mg/dL (7-18); CALCIUM 8.7 mg/dL (8.5-10.1)
[2023-06-11 13:52] LABS: CREATININE 0.8 mg/dL (0.55-1.3)
[2023-06-11 13:54] LABS: BILIRUBIN,TOTAL 0.7 mg/dL (0.2-1); TOT PROT 7.9 g/dl (6.4-8.2)
[2023-06-11] MEDS ORDERED: KETOROLAC TROMETHAMINE 15 MG/ML VIAL IVPUSH ONE (15:07)
== END 2023-06-11 15:28 | disposition home or self-care (01) ==
LOC: JER 11:02
PROC: 3E033NZ Introduction of Analgesics, Hypnotics, Sedatives into Peripheral Vein, Percutaneous Approach (ICD-10-PCS; principal; 2023-06-11)
DX: R10.11 Right upper quadrant pain (principal); M54.9 Dorsalgia, unspecified; M25.512 Pain in left shoulder
CPT/HCPCS: 36415; 74177-TC; 76705-TC; 80053; 85025; 99285-25; Q9967